=== PATIENT | male | born 2000 | race Caucasian/White ===

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

== ENCOUNTER 2022-08-31 19:21 | Emergency (ER) | payer OTHER ==
[~2022-08-31] VITALS: Ht 160 cm; Wt 49.1 kg
[2022-08-31 20:09] VITALS: BP 136/71
--- NOTE | 2022-08-31 20:12 | NUR ---
PT IN FRONT OF LOBBY WAITING FOR BED.
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
--- NOTE | 2022-08-31 20:47 | NUR ---
PATIENT AMBULATED TO BED 9
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
[2022-08-31] MEDS ORDERED: LIDOCAINE MPF 2% 100 MG/5 ML VIAL INJ ONE (21:20)
[2022-08-31] MEDS ORDERED: LIDOCAINE MPF 1% 5 ML ONE (21:21)
--- NOTE | 2022-08-31 21:37 | NUR ---
PT REFUSED TDAP INJECTION.
[2022-08-31] MEDS ORDERED: LIDOCAINE MPF 1% 10 MG/ML VIAL INJ ONE (21:50)
--- NOTE | 2022-08-31 23:38 | NUR ---
Patient has a 1 cm laceration to forehead. Dr. Emerson applied sutures using sterile technique. Edges well approximated. Site cleansed with well. No bleeding noted. Pt tolerated well.
[2022-08-31 23:52] VITALS: BP 110/65
--- NOTE | 2022-08-31 23:52 | NUR ---
Patient discharged with v/s stable. Written and verbal after care instructions given and explained. Patient verbalized understanding. Ambulatory with steady gait. All questions addressed prior to discharge. Advised to follow up with PMD.
== END 2022-08-31 23:52 | disposition home or self-care (01) ==
LOC: MED 19:21
DX: S01.01XA Laceration without foreign body of scalp, initial encounter (principal); Z79.899 Other long term (current) drug therapy; W20.8XXA Other cause of strike by thrown, projected or falling object, initial encounter; Y93.89 Activity, other specified; Y92.89 Other specified places as the place of occurrence of the external cause; Y99.8 Other external cause status
CPT/HCPCS: 12002; 70450; 99284; J2001; 90715

== ENCOUNTER 2022-09-06 13:49 | Emergency (ER) | payer OTHER ==
[~2022-09-06] VITALS: Ht 162.6 cm; Wt 49.4 kg
[2022-09-06 13:51] VITALS: BP 120/67
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
[2022-09-06 14:27] VITALS: BP 120/67
== END 2022-09-06 14:27 | disposition home or self-care (01) ==
LOC: MED 13:49
DX: S01.01XD Laceration without foreign body of scalp, subsequent encounter (principal); Z48.02 Encounter for removal of sutures; X58.XXXD Exposure to other specified factors, subsequent encounter
CPT/HCPCS: 99281